=== PATIENT | male | born 1950 | race Caucasian/White ===

== ENCOUNTER 2017-07-15 16:42 | Emergency (ER) | payer MEDICARE, OTHER ==
[~2017-07-15] VITALS: Ht 188 cm; Wt 113.4 kg
[2017-07-15] MEDS ORDERED: CENTRUM SILVER1 EAC4 PO (16:55)
[2017-07-15] MEDS ORDERED: FISH OIL 1,001000 M2 PO (16:56)
[2017-07-15] MEDS ORDERED: ELIQUIS5 MG PO (16:56)
[2017-07-15] MEDS ORDERED: GABAPENTIN 100100 MG PO (16:57)
[2017-07-15] MEDS ORDERED: METFORMIN HCL500 MG PO (16:58)
[2017-07-15] MEDS ORDERED: JANUVIA100 MG PO (16:58)
[2017-07-15] MEDS ORDERED: GLUCOTROL5 MG PO (16:58)
[2017-07-15] MEDS ORDERED: GLUCOSAMINE-CH1 EA26 PO (16:58)
[2017-07-15] MEDS ORDERED: HYDROCODONE-AP1 EAC6 PO (16:59)
[2017-07-15] MEDS ORDERED: POTASSIUM20 PO (16:59)
[2017-07-15] MEDS ORDERED: LIPITOR 20 MG T20 M1 PO (16:59)
[2017-07-15] MEDS ORDERED: PROCARDIA XL90 MG PO (17:00)
[2017-07-15] MEDS ORDERED: TOPROL XL100 MG PO (17:00)
[2017-07-15] MEDS ORDERED: VITAMIN D1000 UNI1 PO (17:01)
[2017-07-15] MEDS ORDERED: ZESTORETIC 20-1 EACH PO (17:01)
[2017-07-15] MEDS ORDERED: ZANAFLEX4 MG PO (17:02)
[2017-07-15 17:11] LABS: ABSOLUTE BASOPHILS 0.1 thou/uL (0.0-0.2); ABSOLUTE EOSINOPHILS 0.4 thou/uL (0.0-0.7); ABSOLUTE LYMPHOCYTES 3.1 thou/uL (0.8-5.3); ABSOLUTE NEUTROPHILS 6.3 thou/uL (1.6-8.1); BASOPHILS 1.2 %; EOSINOPHILS 3.8 %; HEMATOCRIT 41.1 % (42.0-52.0); HEMOGLOBIN 13.9 gm/dL (14.0-18.0); LYMPHOCYTES 28.4 %; MCH 30.5 pg (26.0-34.0); MCHC 33.8 g/dL (28.0-37.0); MCV 90.2 fL (80.0-100.0); MONOCYTES 9.1 %; MPV 10.3 fl. (7.2-11.1); NUCLEATED RBCS 0 /100WBC; PLATELET COUNT* 284 thou/uL (150-400); POLYS 57.5 %; RBC 4.56 mil/uL (4.50-6.00); RDW-CV 13.7 % (10.5-14.5)
[2017-07-15 17:20] LABS: INR 1.1
[2017-07-15 17:21] LABS: ANION GAP 11 mmol/L (7-16); BUN 14 mg/dL (7-18); CHLORIDE 103 mmol/L (98-107); CO2 28 mmol/L (21-32); CREATININE 1.1 mg/dL (0.6-1.3); GLUCOSE 116 mg/dL (70-99); POTASSIUM 3.5 mmol/L (3.5-5.1); SODIUM 142 mmol/L (136-145)
[2017-07-15 17:33] LABS: ALKALINE PHOSPHATASE 84 U/L (46-116); NT-PRO BRAIN NAT PEPTIDE 594 pg/mL (<300); SGOT 24 U/L (15-37); SGPT 46 U/L (30-65); TOTAL BILIRUBIN 0.6 mg/dL (<0.1-1.0); TOTAL PROTEIN 7.8 g/dL (6.4-8.2); TROPONIN-I LEVEL <0.06 ng/mL (<0.06)
[2017-07-15] MEDS ORDERED: LASIX 20 MG TAB20 MG PO (18:06)
--- NOTE | 2017-07-16 10:41 | EKG ---
[place] [address] ELECTROCARDIOGRAM REPORT Name: JACKIE MA Room: [facility]#: [id number] Admission: 07/15/17 Attend Phys: Discharge: 07/15/17 Date of : 54 Report #: [id number] THIS REPORT FOR: //name// [facility] [place] ED Test Date: 2017-07-15 Test Time: 16:49:39 Pat Name: JACKIE MA Department: Room: Gender: M [employer]: STUDENT : 1950 Requested By: Santino Londono Order Number: [id number] MD: Rafat Prescott Measurements Intervals [place] Rate: 84 P: [place]: QRS: -5 QRSD: 160 T: 104 QT: 435 QTc: 515 Interpretive Statements Atrial fibrillation Left bundle branch block No previous ECG available for comparison Electronically Signed On 07-16-2017 10:41:37 [employer] by Rafat Prescott [email or web address] <ELECTRONICALLY SIGNED> By: Rafat Prescott MD, [facility] 07/16/17 1041 [id number] [id number] Rafat Prescott MD, FACC /EPI
== END 2017-07-15 18:24 | disposition home or self-care (01) ==
LOC: M.ERS 16:42
PROVIDERS: Emergency Medicine
DX: I11.0 Hypertensive heart disease with heart failure (principal); I50.9 Heart failure, unspecified; I48.91 Unspecified atrial fibrillation; E11.9 Type 2 diabetes mellitus without complications; E78.5 Hyperlipidemia, unspecified; Z88.8 Allergy status to other drugs, medicaments and biological substances

== ENCOUNTER → 2020-11-06 | Outpatient (CLI) | payer OTHER ==
[~2020-11-06] MED LIST: CENTRUM SILVER1 EAC4 PO; ELIQUIS5 MG PO; FISH OIL 1,001000 M2 PO; GABAPENTIN 100100 MG PO; GLUCOSAMINE-CH1 EA26 PO; GLUCOTROL5 MG PO; HYDROCODONE-AP1 EAC6 PO; JANUVIA100 MG PO; LASIX 20 MG TAB20 MG PO; LIPITOR 20 MG T20 M1 PO; METFORMIN HCL500 MG PO; POTASSIUM20 PO; PROCARDIA XL90 MG PO; TOPROL XL100 MG PO; VITAMIN D1000 UNI1 PO; ZANAFLEX4 MG PO; ZESTORETIC 20-1 EACH PO
== END ==
LOC: M.RAD 12:09
PROVIDERS: ATTEND Internal Medicine
DX: M19.012 Primary osteoarthritis, left shoulder (principal); M25.512 Pain in left shoulder